=== PATIENT | female | born 1955 | race Caucasian/White ===

== ENCOUNTER 2018-05-10 19:25 | Inpatient (IN) | payer OTHER ==
[~2018-05-10] VITALS: Ht 152.4 cm; Wt 144.0 kg
[2018-05-10] MEDS ORDERED: MORPHINE SULFATE 4 MG/ML, 1ML IVPush PRN (20:30)
[2018-05-10] MEDS ORDERED: SODIUM CHLORIDE FLUSH 10ML SYR IVF PRN ×2 (20:30→21:00)
[2018-05-10] MEDS ORDERED: ONDANSETRON 2MG/ML, 2ML IVPush PRN ×2 (20:30→23:30)
[2018-05-10] MEDS ORDERED: ONDANSETRON 2MG/ML, 2ML ONE (20:31)
[2018-05-10] MEDS ORDERED: METHOCARBAMOL 750 MG TABLET ONE (20:31)
[2018-05-10] MEDS ORDERED: MORPHINE SULFATE 4 MG/ML, 1ML ONE (20:32)
--- NOTE | 2018-05-10 20:54 | NUR ---
PT BEDSIDE REPORT FROM RAJIV MARTINS. THIS RN TO ASSUME CARE OF PT. PT EATING MEAL AT THIS TIME. AWAITING ADMIT BED.
[2018-05-10] MEDS ORDERED: METHOCARBAMOL 750 MG TABLET PO SCH (21:00)
--- NOTE | 2018-05-10 21:59 | NUR ---
PT RESTING COMFORTABLY ON GURNEY. NADN. VSS. CALL LIGHT WITHIN REACH. AWAITING ADMIT BED UPSTAIRS.
--- NOTE | 2018-05-10 22:48 | NUR ---
PT RESTING COMFORTABLY ON GURNEY. NADN. VSS. CALL LIGHT WITHIN REACH. AWAITING ADMIT BED UPSTAIRS.
[2018-05-10 23:05] VITALS: BP 137/69
[2018-05-10] MEDS ORDERED: PROMETHAZINE 25 MG/ML, 1ML IM PRN (23:30)
[2018-05-10] MEDS ORDERED: KETOROLAC 30 MG/1 ML IV PRN (23:30)
[2018-05-10] MEDS ORDERED: CEFTRIAXONE PMX 2GM/50ML 50 ML IV SCH (23:30)
[2018-05-10] MEDS ORDERED: BISACODYL 10 MG SUPP PR PRN (23:30)
[2018-05-10] MEDS ORDERED: morphine SULFATE 10 MG/ML, 1ML IVPush PRN (23:30)
[2018-05-10] MEDS ORDERED: hydrALAzine 20 MG/ML, 1ML IVPush PRN (23:30)
[2018-05-10] MEDS ORDERED: LABETALOL 5MG/ML, 20ML IVPush PRN (23:30)
[2018-05-10] MEDS ORDERED: ONDANSETRON ODT 4 MG PO PRN (23:30)
[2018-05-11] MEDS: HEPARIN 5,000 UNITS/ML, 1ML SQ SCH ×4 (00:26→22:07)
[2018-05-11] MEDS: SODIUM CHLORIDE 0.9% 1,000 ML IV SCH ×3 (00:27→22:08)
[2018-05-11 00:31] LABS: FREE T4 (FREE THYROXINE) 1.16 ng/dL (0.76-1.46); THYROID STIMULATING HORMONE 0.294 mIU/L (0.358-3.740)
[2018-05-11 00:58] LABS: HEMOGLOBIN A1C 6.6 % (4.2-6.3)
[2018-05-11 02:52] LABS: CULTURE INDICATED? YES; MICROSCOPIC INDICATED
[2018-05-11 03:40] VITALS: BP 106/75
[2018-05-11] MEDS: OXYcodone/APAP 5/325MG TABLET PO PRN ×4 (05:23→22:07)
[2018-05-11 05:54] LABS: BASOPHILS % (AUTO) 0 % (0-1); EOSINOPHILS % (AUTO) 0 % (1-7); LYMPHOCYTES # (AUTO) 1.16 x10^3/uL (1-3.4); LYMPHOCYTES % (AUTO) 8 % (22-44); MD NO; MEAN CORPUSCULAR HEMOGLOBIN 29.9 pg (27.0-34.8); MEAN CORPUSCULAR HGB CONC 33.3 g/dL (32.4-35.8); MEAN CORPUSCULAR VOLUME 89.6 fL (80-100); MEAN PLATELET VOLUME 7.3 fL (7.4-10.4); MONOCYTES # (AUTO) 0.64 x10^3/uL (0.2-0.8); MONOCYTES % (AUTO) 4 % (2-9); NEUTROPHILS # (AUTO) 13.72 x10^3/uL (1.8-6.8); NEUTROPHILS % (AUTO) 88 % (42-75); PLATELET COUNT 337 x10^3/uL (130-400); RED BLOOD COUNT 3.48 x10^6/uL (3.82-5.3); RED CELL DISTRIBUTION WIDTH 14.9 % (9.6-15.2)
[2018-05-11 06:03] LABS: ALBUMIN 2.4 g/dL (3.4-5.0); ANION GAP 11 mmol/L (5-15); CALCIUM 9.1 mg/dL (8.5-10.1); CHLORIDE 101 mmol/L (98-107)
[2018-05-11 06:07] LABS: ALANINE AMINOTRANSFERASE 61 U/L (12-78); ALKALINE PHOSPHATASE 166 U/L (45-117); BILIRUBIN,TOTAL 0.3 mg/dL (0.2-1.0); CHOL/HDL RATIO 2.9; CHOLESTEROL, TOTAL 140 mg/dL (140-239); HDL CHOL % 35 % (28-40); HDL CHOLESTEROL (DIRECT) 49 mg/dL (40-60); LDL CHOLESTEROL,CALCULATED 37 mg/dL (54-169); LDL/HDL RATIO 0.8 (0.5-3.0); TOTAL PROTEIN 7.4 g/dL (6.4-8.2); TRIGLYCERIDES 268 mg/dL (50-200); VLDL CHOLESTEROL 54 mg/dL (0-25)
[2018-05-11 07:46] VITALS: BP 105/65
[2018-05-11] MEDS: INSULIN LISPRO 100 UNITS/ML, PEN SQ-INSULIN SCH ×4 (08:26→22:08)
[2018-05-11] MEDS: SENNA/DOCUSATE TABLET PO SCH (08:26)
[2018-05-11 12:41] VITALS: BP 113/63
[2018-05-11] MEDS: METHOCARBAMOL 500 MG TABLET PO PRN ×2 (12:50→22:07)
[2018-05-11] MEDS ORDERED: PHARMACOKINETIC MONITORING MC PRN (14:00)
[2018-05-11] MEDS ORDERED: VANCOMYCIN PER PHARMACY MC PRN (14:00)
[2018-05-11] MEDS ORDERED: VANCOMYCIN 2,300 MG in SODIUM CHLORIDE 0.9% 500 ML IV ONE (14:30)
[2018-05-11 15:58] LABS: HCT (SEDRATE) 27.7 % (34.6-47.8)
[2018-05-11 19:37] VITALS: BP 92/53
[2018-05-12 02:22] VITALS: BP 93/56
[2018-05-12] MEDS: OXYcodone/APAP 5/325MG TABLET PO PRN ×4 (02:44→21:06)
[2018-05-12 05:43] LABS: BASOPHILS # (AUTO) 0.06 x10^3/uL (0-0.1); BASOPHILS % (AUTO) 1 % (0-1); EOSINOPHILS # (AUTO) 0.13 x10^3/uL (0-0.4); EOSINOPHILS % (AUTO) 1 % (1-7); LYMPHOCYTES % (AUTO) 16 % (22-44); MD NO; MEAN CORPUSCULAR HEMOGLOBIN 30.3 pg (27.0-34.8); MEAN CORPUSCULAR HGB CONC 33.2 g/dL (32.4-35.8); MEAN CORPUSCULAR VOLUME 91.2 fL (80-100); MEAN PLATELET VOLUME 7.2 fL (7.4-10.4); MONOCYTES # (AUTO) 1.07 x10^3/uL (0.2-0.8); MONOCYTES % (AUTO) 8 % (2-9); NEUTROPHILS % (AUTO) 75 % (42-75); PLATELET COUNT 289 x10^3/uL (130-400); RED BLOOD COUNT 3.33 x10^6/uL (3.82-5.3); RED CELL DISTRIBUTION WIDTH 15.7 % (9.6-15.2)
[2018-05-12 05:58] LABS: ANION GAP 11 mmol/L (5-15); CALCIUM 8.4 mg/dL (8.5-10.1); CHLORIDE 103 mmol/L (98-107)
[2018-05-12 06:02] LABS: CREATININE 2.27 mg/dL (0.55-1.02)
[2018-05-12 06:33] LABS: VANCOMYCIN,RANDOM < 0.8 mcg/mL
[2018-05-12] MEDS: HEPARIN 5,000 UNITS/ML, 1ML SQ SCH ×3 (07:30→23:27)
[2018-05-12 07:44] VITALS: BP 109/65
[2018-05-12] MEDS: INSULIN LISPRO 100 UNITS/ML, PEN SQ-INSULIN SCH ×4 (07:57→21:05)
[2018-05-12] MEDS: METHOCARBAMOL 500 MG TABLET PO PRN ×2 (07:57→15:20)
[2018-05-12] MEDS: SENNA/DOCUSATE TABLET PO SCH (07:58)
[2018-05-12] MEDS ORDERED: FLUO20CA19 PO (08:24)
[2018-05-12] MEDS ORDERED: FENO150C2 PO (08:24)
[2018-05-12] MEDS ORDERED: CYCL-259 PO ×2 (08:24)
[2018-05-12] MEDS ORDERED: TIZA2CAP PO (08:24)
[2018-05-12] MEDS ORDERED: LISI10TA2 PO (08:25)
[2018-05-12] MEDS ORDERED: FURO40TA6 PO (08:25)
[2018-05-12] MEDS ORDERED: SIMV20TA3 PO (08:25)
[2018-05-12] MEDS ORDERED: LIDOCAINE-MPF 1%, 5ML ONE (10:28)
[2018-05-12] MEDS ORDERED: MIDAZOLAM 1 MG/ML, 5ML ONE ×2 (10:46→10:47)
[2018-05-12] MEDS ORDERED: FENTANYL PF 100 MCG/2ML ONE ×2 (10:46)
[2018-05-12] MEDS ORDERED: FLUMAZENIL 0.1 MG/1 ML, 5ML ONE (10:47)
[2018-05-12] MEDS ORDERED: NALOXONE 1 MG/ML, 2ML ONE (10:47)
[2018-05-12 13:22] VITALS: BP 114/74
[2018-05-12 19:40] VITALS: BP 84/46
[2018-05-12] MEDS: LISINOPRIL 10 MG TABLET PO SCH (21:00)
[2018-05-12] MEDS: FLUOXETINE HCL 20 MG CAPSULE PO SCH (21:06)
[2018-05-12] MEDS: SIMVASTATIN 20 MG TABLET PO SCH (21:06)
[2018-05-12] MEDS: CYCLOBENZAPRINE 10 MG TABLET PO PRN (21:06)
[2018-05-12 23:33] VITALS: BP 121/76
[2018-05-13] VITALS (8 sets, daily range): BP systolic 97–140; BP diastolic 47–76
[2018-05-13] MEDS: METHOCARBAMOL 500 MG TABLET PO PRN ×3 (02:49→20:44)
[2018-05-13] MEDS: OXYcodone/APAP 5/325MG TABLET PO PRN ×3 (02:49→20:45)
[2018-05-13 05:13] LABS: ALBUMIN 2.1 g/dL (3.4-5.0); ANION GAP 6 mmol/L (5-15); CALCIUM 8.8 mg/dL (8.5-10.1); CHLORIDE 104 mmol/L (98-107)
[2018-05-13 05:17] LABS: ALANINE AMINOTRANSFERASE 52 U/L (12-78); ALKALINE PHOSPHATASE 132 U/L (45-117); BILIRUBIN,TOTAL 0.4 mg/dL (0.2-1.0); CREATININE 1.73 mg/dL (0.55-1.02); TOTAL PROTEIN 6.5 g/dL (6.4-8.2)
[2018-05-13 05:25] LABS: BASOPHILS # (AUTO) 0.08 x10^3/uL (0-0.1); BASOPHILS % (AUTO) 1 % (0-1); EOSINOPHILS # (AUTO) 0.19 x10^3/uL (0-0.4); EOSINOPHILS % (AUTO) 2 % (1-7); LYMPHOCYTES % (AUTO) 14 % (22-44); MD NO; MEAN CORPUSCULAR HEMOGLOBIN 30.1 pg (27.0-34.8); MEAN CORPUSCULAR HGB CONC 33.5 g/dL (32.4-35.8); MEAN PLATELET VOLUME 6.9 fL (7.4-10.4); MONOCYTES # (AUTO) 0.94 x10^3/uL (0.2-0.8); MONOCYTES % (AUTO) 9 % (2-9); NEUTROPHILS # (AUTO) 7.83 x10^3/uL (1.8-6.8); NEUTROPHILS % (AUTO) 74 % (42-75); PLATELET COUNT 290 x10^3/uL (130-400); RED CELL DISTRIBUTION WIDTH 15.3 % (9.6-15.2)
[2018-05-13] MEDS: HEPARIN 5,000 UNITS/ML, 1ML SQ SCH ×2 (07:56→15:30)
[2018-05-13] MEDS: INSULIN LISPRO 100 UNITS/ML, PEN SQ-INSULIN SCH ×4 (07:56→20:45)
[2018-05-13] MEDS: FUROSEMIDE 40 MG TABLET PO SCH (07:56)
[2018-05-13] MEDS: FENOFIBRATE 145 MG TABLET PO SCH (07:57)
[2018-05-13] MEDS: SENNA/DOCUSATE TABLET PO SCH (07:57)
--- NOTE | 2018-05-13 10:53 | NUR ---
DEX KAUFMAN - Fall Risk Medication(s) present and receiving anticoagulants.
[2018-05-13] MEDS: MEROPENEM 1 GM in SODIUM CHLORIDE 0.9% 100 ML IV SCH (15:13)
[2018-05-13] MEDS ORDERED: CEFTRIAXONE PMX 2GM/50ML 50 ML IV SCH (16:00)
[2018-05-13] MEDS: SIMVASTATIN 20 MG TABLET PO SCH (20:44)
[2018-05-13] MEDS: FLUOXETINE HCL 20 MG CAPSULE PO SCH (20:44)
[2018-05-13] MEDS: LISINOPRIL 10 MG TABLET PO SCH (20:45)
[2018-05-14] MEDS: HEPARIN 5,000 UNITS/ML, 1ML SQ SCH ×3 (00:11→16:53)
[2018-05-14 00:48] VITALS: BP 130/80
[2018-05-14] MEDS: MEROPENEM 1 GM in SODIUM CHLORIDE 0.9% 100 ML IV SCH (03:00)
[2018-05-14] MEDS: CYCLOBENZAPRINE 10 MG TABLET PO PRN ×2 (03:21→13:52)
[2018-05-14] MEDS: OXYcodone/APAP 5/325MG TABLET PO PRN ×4 (03:21→18:35)
[2018-05-14 07:14] VITALS: BP 138/79
[2018-05-14] MEDS: FENOFIBRATE 145 MG TABLET PO SCH (08:08)
[2018-05-14] MEDS: INSULIN LISPRO 100 UNITS/ML, PEN SQ-INSULIN SCH ×4 (08:08→21:14)
[2018-05-14] MEDS: METHOCARBAMOL 500 MG TABLET PO PRN (08:08)
[2018-05-14] MEDS: FUROSEMIDE 40 MG TABLET PO SCH (08:08)
[2018-05-14] MEDS: SENNA/DOCUSATE TABLET PO SCH (09:00)
[2018-05-14 13:02] VITALS: BP 127/80
[2018-05-14] MEDS ORDERED: CEFTRIAXONE PMX 2GM/50ML 50 ML IV SCH (15:00)
[2018-05-14] MEDS: SIMVASTATIN 20 MG TABLET PO SCH (20:14)
[2018-05-14] MEDS: FLUOXETINE HCL 20 MG CAPSULE PO SCH (20:14)
[2018-05-14] MEDS: LISINOPRIL 10 MG TABLET PO SCH (20:14)
[2018-05-14 21:15] VITALS: BP 119/64
[2018-05-15 02:06] VITALS: BP 118/70
[2018-05-15] MEDS: OXYcodone/APAP 5/325MG TABLET PO PRN ×3 (02:32→18:25)
[2018-05-15] MEDS: HEPARIN 5,000 UNITS/ML, 1ML SQ SCH ×4 (02:33→20:51)
[2018-05-15 06:05] LABS: HCT (SEDRATE) 29.6 % (34.6-47.8)
[2018-05-15 06:08] LABS: MEAN CORPUSCULAR HGB CONC 33.8 g/dL (32.4-35.8); MEAN CORPUSCULAR VOLUME 88.8 fL (80-100); MEAN PLATELET VOLUME 6.9 fL (7.4-10.4); PLATELET COUNT 327 x10^3/uL (130-400); RED CELL DISTRIBUTION WIDTH 15.3 % (9.6-15.2)
[2018-05-15 06:19] LABS: CHLORIDE 101 mmol/L (98-107)
[2018-05-15 06:34] LABS: BASOPHILS # (AUTO) 0.13 x10^3/uL (0-0.1); BASOPHILS % (AUTO) 1 % (0-1); EOSINOPHILS # (AUTO) 0.21 x10^3/uL (0-0.4); EOSINOPHILS % (AUTO) 1 % (1-7); LYMPHOCYTES # (AUTO) 2.41 x10^3/uL (1-3.4); LYMPHOCYTES % (AUTO) 16 % (22-44); MD SCAN; MONOCYTES # (AUTO) 1.32 x10^3/uL (0.2-0.8); MONOCYTES % (AUTO) 9 % (2-9); NEUTROPHILS % (AUTO) 72 % (42-75)
[2018-05-15 06:56] LABS: ALBUMIN 2.3 g/dL (3.4-5.0); ANION GAP 9 mmol/L (5-15); CALCIUM 9.4 mg/dL (8.5-10.1)
[2018-05-15 07:10] LABS: ALANINE AMINOTRANSFERASE 57 U/L (12-78); ALKALINE PHOSPHATASE 144 U/L (45-117); BILIRUBIN,TOTAL 0.3 mg/dL (0.2-1.0); CREATININE 1.54 mg/dL (0.55-1.02); TOTAL PROTEIN 6.7 g/dL (6.4-8.2)
[2018-05-15 07:12] VITALS: BP 138/78
[2018-05-15] MEDS: FENOFIBRATE 145 MG TABLET PO SCH (07:54)
[2018-05-15] MEDS: METHOCARBAMOL 500 MG TABLET PO PRN (07:54)
[2018-05-15] MEDS: INSULIN LISPRO 100 UNITS/ML, PEN SQ-INSULIN SCH ×4 (07:54→20:57)
[2018-05-15] MEDS: FUROSEMIDE 40 MG TABLET PO SCH (07:55)
[2018-05-15] MEDS: SENNA/DOCUSATE TABLET PO SCH (07:55)
[2018-05-15 12:21] VITALS: BP 125/74
[2018-05-15] MEDS: CYCLOBENZAPRINE 10 MG TABLET PO PRN (14:12)
[2018-05-15] MEDS: CEFTRIAXONE PMX 2GM/50ML 50 ML IV SCH (14:33)
[2018-05-15 19:26] VITALS: BP 119/75
[2018-05-15] MEDS: FLUOXETINE HCL 20 MG CAPSULE PO SCH (20:50)
[2018-05-15] MEDS: LISINOPRIL 10 MG TABLET PO SCH (20:50)
[2018-05-15] MEDS: SIMVASTATIN 20 MG TABLET PO SCH (20:51)
[2018-05-16 01:42] VITALS: BP 120/69
[2018-05-16 06:16] LABS: BASOPHILS # (AUTO) 0.11 x10^3/uL (0-0.1); BASOPHILS % (AUTO) 1 % (0-1); EOSINOPHILS # (AUTO) 0.36 x10^3/uL (0-0.4); EOSINOPHILS % (AUTO) 2 % (1-7); LYMPHOCYTES # (AUTO) 2.48 x10^3/uL (1-3.4); LYMPHOCYTES % (AUTO) 16 % (22-44); MD NO; MEAN CORPUSCULAR HEMOGLOBIN 29.7 pg (27.0-34.8); MEAN CORPUSCULAR HGB CONC 33.2 g/dL (32.4-35.8); MEAN CORPUSCULAR VOLUME 89.5 fL (80-100); MEAN PLATELET VOLUME 7.1 fL (7.4-10.4); MONOCYTES % (AUTO) 8 % (2-9); NEUTROPHILS # (AUTO) 10.93 x10^3/uL (1.8-6.8); NEUTROPHILS % (AUTO) 73 % (42-75); PLATELET COUNT 357 x10^3/uL (130-400); RED BLOOD COUNT 3.51 x10^6/uL (3.82-5.3); RED CELL DISTRIBUTION WIDTH 15.1 % (9.6-15.2)
[2018-05-16] MEDS: OXYcodone/APAP 5/325MG TABLET PO PRN ×3 (06:31→16:10)
[2018-05-16 07:18] VITALS: BP 118/71
[2018-05-16] MEDS: INSULIN LISPRO 100 UNITS/ML, PEN SQ-INSULIN SCH ×4 (08:21→20:05)
[2018-05-16] MEDS: FUROSEMIDE 40 MG TABLET PO SCH (08:21)
[2018-05-16] MEDS: FENOFIBRATE 145 MG TABLET PO SCH (08:22)
[2018-05-16] MEDS: POLYETHYLENE GLYCOL 17 GM PACKET PO PRN (08:22)
[2018-05-16] MEDS: SENNA/DOCUSATE TABLET PO SCH (08:22)
[2018-05-16] MEDS: HEPARIN 5,000 UNITS/ML, 1ML SQ SCH ×2 (08:22→17:18)
[2018-05-16] MEDS: METHOCARBAMOL 500 MG TABLET PO PRN ×2 (11:01→19:58)
[2018-05-16 12:53] VITALS: BP 100/66
[2018-05-16] MEDS: CYCLOBENZAPRINE 10 MG TABLET PO PRN ×2 (12:53→22:18)
[2018-05-16] MEDS: CEFTRIAXONE PMX 2GM/50ML 50 ML IV SCH (12:53)
[2018-05-16 19:30] VITALS: BP 97/63
[2018-05-16 19:54] VITALS: BP 127/75
[2018-05-16] MEDS: LISINOPRIL 10 MG TABLET PO SCH (19:57)
[2018-05-16] MEDS: SIMVASTATIN 20 MG TABLET PO SCH (19:58)
[2018-05-16] MEDS: FLUOXETINE HCL 20 MG CAPSULE PO SCH (19:58)
[2018-05-17] VITALS (7 sets, daily range): BP systolic 87–120; BP diastolic 54–73
[2018-05-17] MEDS: OXYcodone/APAP 5/325MG TABLET PO PRN ×3 (00:09→16:54)
[2018-05-17] MEDS: HEPARIN 5,000 UNITS/ML, 1ML SQ SCH ×3 (00:09→16:54)
[2018-05-17] MEDS ORDERED: SODIUM CHLORIDE 0.9%, 500ML IVBOLUS ONE (02:00)
[2018-05-17 02:48] LABS: BASOPHILS # (AUTO) 0.09 x10^3/uL (0-0.1); BASOPHILS % (AUTO) 1 % (0-1); EOSINOPHILS % (AUTO) 3 % (1-7); LYMPHOCYTES # (AUTO) 2.11 x10^3/uL (1-3.4); LYMPHOCYTES % (AUTO) 14 % (22-44); MD NO; MEAN CORPUSCULAR HEMOGLOBIN 29.6 pg (27.0-34.8); MEAN CORPUSCULAR HGB CONC 33.2 g/dL (32.4-35.8); MEAN CORPUSCULAR VOLUME 89.2 fL (80-100); MEAN PLATELET VOLUME 7.2 fL (7.4-10.4); MONOCYTES # (AUTO) 0.74 x10^3/uL (0.2-0.8); MONOCYTES % (AUTO) 5 % (2-9); NEUTROPHILS # (AUTO) 11.46 x10^3/uL (1.8-6.8); NEUTROPHILS % (AUTO) 78 % (42-75); PLATELET COUNT 373 x10^3/uL (130-400); RED BLOOD COUNT 3.29 x10^6/uL (3.82-5.3); RED CELL DISTRIBUTION WIDTH 15.1 % (9.6-15.2)
[2018-05-17 02:55] LABS: ALANINE AMINOTRANSFERASE 56 U/L (12-78); ALBUMIN 2.4 g/dL (3.4-5.0); ANION GAP 8 mmol/L (5-15); CHLORIDE 98 mmol/L (98-107); CREATININE 1.79 mg/dL (0.55-1.02)
[2018-05-17 02:57] LABS: ALKALINE PHOSPHATASE 122 U/L (45-117); BILIRUBIN,TOTAL 0.3 mg/dL (0.2-1.0); TOTAL PROTEIN 6.5 g/dL (6.4-8.2)
[2018-05-17] MEDS: METHOCARBAMOL 500 MG TABLET PO PRN ×2 (05:13→19:56)
[2018-05-17] MEDS: FENOFIBRATE 145 MG TABLET PO SCH (08:43)
[2018-05-17] MEDS: FUROSEMIDE 40 MG TABLET PO SCH (08:43)
[2018-05-17] MEDS: CYCLOBENZAPRINE 10 MG TABLET PO PRN ×2 (08:43→22:16)
[2018-05-17] MEDS: SENNA/DOCUSATE TABLET PO SCH (08:43)
[2018-05-17] MEDS: INSULIN LISPRO 100 UNITS/ML, PEN SQ-INSULIN SCH ×4 (08:44→20:10)
[2018-05-17] MEDS: CEFTRIAXONE PMX 2GM/50ML 50 ML IV SCH (11:47)
[2018-05-17] MEDS: LISINOPRIL 10 MG TABLET PO SCH (19:55)
[2018-05-17] MEDS: FLUOXETINE HCL 20 MG CAPSULE PO SCH (19:55)
[2018-05-17] MEDS: SIMVASTATIN 20 MG TABLET PO SCH (19:56)
[2018-05-18] MEDS: HEPARIN 5,000 UNITS/ML, 1ML SQ SCH ×3 (00:37→17:57)
[2018-05-18] MEDS: OXYcodone/APAP 5/325MG TABLET PO PRN ×2 (00:37→15:56)
[2018-05-18 00:43] VITALS: BP 120/72
[2018-05-18 07:24] VITALS: BP 149/75
[2018-05-18] MEDS: INSULIN LISPRO 100 UNITS/ML, PEN SQ-INSULIN SCH ×4 (08:00→20:33)
[2018-05-18] MEDS: METHOCARBAMOL 500 MG TABLET PO PRN ×2 (08:01→16:08)
[2018-05-18] MEDS: FENOFIBRATE 145 MG TABLET PO SCH (09:38)
[2018-05-18] MEDS: SENNA/DOCUSATE TABLET PO SCH (09:39)
[2018-05-18] MEDS: FUROSEMIDE 40 MG TABLET PO SCH (09:40)
[2018-05-18] MEDS: CYCLOBENZAPRINE 10 MG TABLET PO PRN ×2 (12:00→20:24)
[2018-05-18] MEDS: CEFTRIAXONE PMX 2GM/50ML 50 ML IV SCH (12:52)
[2018-05-18 13:53] VITALS: BP 143/79
[2018-05-18 19:59] VITALS: BP 132/64
[2018-05-18 20:23] VITALS: BP 140/74
[2018-05-18] MEDS: LISINOPRIL 10 MG TABLET PO SCH (20:24)
[2018-05-18] MEDS: FLUOXETINE HCL 20 MG CAPSULE PO SCH (20:24)
[2018-05-18] MEDS: SIMVASTATIN 20 MG TABLET PO SCH (20:25)
[2018-05-19] MEDS: HEPARIN 5,000 UNITS/ML, 1ML SQ SCH ×3 (00:31→20:02)
[2018-05-19 00:59] VITALS: BP 144/79
[2018-05-19] MEDS: OXYcodone/APAP 5/325MG TABLET PO PRN ×3 (02:12→20:33)
[2018-05-19] MEDS: METHOCARBAMOL 500 MG TABLET PO PRN ×3 (02:12→15:38)
[2018-05-19 02:41] LABS: BASOPHILS # (AUTO) 0.07 x10^3/uL (0-0.1); BASOPHILS % (AUTO) 0 % (0-1); EOSINOPHILS # (AUTO) 0.35 x10^3/uL (0-0.4); EOSINOPHILS % (AUTO) 2 % (1-7); LYMPHOCYTES # (AUTO) 2.39 x10^3/uL (1-3.4); LYMPHOCYTES % (AUTO) 14 % (22-44); MD NO; MEAN CORPUSCULAR HEMOGLOBIN 30.1 pg (27.0-34.8); MEAN CORPUSCULAR HGB CONC 34.2 g/dL (32.4-35.8); MEAN CORPUSCULAR VOLUME 88.3 fL (80-100); MEAN PLATELET VOLUME 7.4 fL (7.4-10.4); MONOCYTES # (AUTO) 1.17 x10^3/uL (0.2-0.8); MONOCYTES % (AUTO) 7 % (2-9); NEUTROPHILS # (AUTO) 13.18 x10^3/uL (1.8-6.8); NEUTROPHILS % (AUTO) 77 % (42-75); PLATELET COUNT 409 x10^3/uL (130-400); RED BLOOD COUNT 3.41 x10^6/uL (3.82-5.3); RED CELL DISTRIBUTION WIDTH 14.6 % (9.6-15.2)
[2018-05-19 02:52] LABS: ANION GAP 9 mmol/L (5-15); CALCIUM 9.4 mg/dL (8.5-10.1); CHLORIDE 97 mmol/L (98-107); CREATININE 1.78 mg/dL (0.55-1.02)
[2018-05-19] MEDS: INSULIN LISPRO 100 UNITS/ML, PEN SQ-INSULIN SCH ×4 (07:48→20:32)
[2018-05-19] MEDS ORDERED: morphine SULFATE 10 MG/ML, 1ML IVPush PRN (08:00)
[2018-05-19 08:43] VITALS: BP 140/76
[2018-05-19] MEDS: CYCLOBENZAPRINE 10 MG TABLET PO PRN ×2 (10:25→20:33)
[2018-05-19 11:12] LABS: HCT (SEDRATE) 29.6 % (34.6-47.8)
[2018-05-19] MEDS: FENOFIBRATE 145 MG TABLET PO SCH (11:17)
[2018-05-19] MEDS: SENNA/DOCUSATE TABLET PO SCH (11:17)
[2018-05-19] MEDS: FUROSEMIDE 40 MG TABLET PO SCH (11:18)
[2018-05-19] MEDS: CEFTRIAXONE PMX 2GM/50ML 50 ML IV SCH (11:53)
[2018-05-19 14:48] VITALS: BP 135/72
[2018-05-19 14:49] VITALS: BP 138/76
[2018-05-19] MEDS: FLUOXETINE HCL 20 MG CAPSULE PO SCH (20:03)
[2018-05-19] MEDS: SIMVASTATIN 20 MG TABLET PO SCH (20:04)
[2018-05-19 20:23] VITALS: BP 106/64
[2018-05-19] MEDS: LISINOPRIL 10 MG TABLET PO SCH (20:33)
[2018-05-20 01:48] VITALS: BP 115/64
[2018-05-20] MEDS: OXYcodone/APAP 5/325MG TABLET PO PRN ×4 (02:25→22:38)
[2018-05-20] MEDS: METHOCARBAMOL 500 MG TABLET PO PRN ×3 (02:25→22:38)
[2018-05-20] MEDS: HEPARIN 5,000 UNITS/ML, 1ML SQ SCH ×3 (04:31→19:37)
[2018-05-20 07:24] VITALS: BP 118/69
[2018-05-20 08:28] LABS: MEAN CORPUSCULAR HEMOGLOBIN 29.4 pg (27.0-34.8); MEAN CORPUSCULAR HGB CONC 33.2 g/dL (32.4-35.8); MEAN CORPUSCULAR VOLUME 88.6 fL (80-100); MEAN PLATELET VOLUME 7.3 fL (7.4-10.4); PLATELET COUNT 378 x10^3/uL (130-400); RED BLOOD COUNT 3.52 x10^6/uL (3.82-5.3); RED CELL DISTRIBUTION WIDTH 14.9 % (9.6-15.2)
[2018-05-20] MEDS: INSULIN LISPRO 100 UNITS/ML, PEN SQ-INSULIN SCH ×4 (08:31→20:10)
[2018-05-20] MEDS: FENOFIBRATE 145 MG TABLET PO SCH (08:32)
[2018-05-20] MEDS: INSULIN GLARGINE 100 UNITS/ML, PEN SQ-INSULIN SCH (08:32)
[2018-05-20] MEDS: FUROSEMIDE 40 MG TABLET PO SCH (08:32)
[2018-05-20] MEDS: SENNA/DOCUSATE TABLET PO SCH (08:32)
[2018-05-20 09:05] LABS: MD YES
[2018-05-20 09:07] LABS: BAND#(MANUAL) 0.74 x10^3/uL; BANDS%(MANUAL) 5 % (0-7); LYMPH#(MANUAL) 2.52 x10^3/uL (1-3.4); LYMPHS% (MANUAL) 17 % (22-44); METAMYELOCYTES# (MANUAL) 0.15 x10^3/uL (0-0); METAMYELOCYTES% (MANUAL) 1 % (0-1); MONOS#(MANUAL) 0.59 x10^3/uL (0.3-2.7); MONOS% (MANUAL) 4 % (2-9); MYELOCYTES# (MANUAL) 0.15 x10^3/uL (0-0); MYELOCYTES% (MANUAL) 1 % (0-0); SEG#(MANUAL) 10.66 x10^3/uL (1.8-6.8); SEGS% (MANUAL) 72 % (42-75)
[2018-05-20 09:08] LABS: <PLATELET ESTIMATE> ADEQUATE; <PLT MORPHOLOGY> NORMAL PLT MORPH; <RBC MORPHOLOGY> NORMAL
[2018-05-20] MEDS: CYCLOBENZAPRINE 10 MG TABLET PO PRN ×2 (10:14→19:37)
[2018-05-20 10:16] LABS: ANION GAP 8 mmol/L (5-15); CALCIUM 9.6 mg/dL (8.5-10.1); CHLORIDE 98 mmol/L (98-107); CREATININE 1.81 mg/dL (0.55-1.02)
[2018-05-20] MEDS: CEFTRIAXONE PMX 2GM/50ML 50 ML IV SCH (12:41)
[2018-05-20 14:18] VITALS: BP 122/73
[2018-05-20 19:29] VITALS: BP 92/59
[2018-05-20] MEDS: SIMVASTATIN 20 MG TABLET PO SCH (19:36)
[2018-05-20] MEDS: FLUOXETINE HCL 20 MG CAPSULE PO SCH (19:37)
[2018-05-20] MEDS: LISINOPRIL 10 MG TABLET PO SCH (21:00)
[2018-05-20 22:35] VITALS: BP 106/65
[2018-05-21 02:00] VITALS: BP 108/63
[2018-05-21] MEDS: CYCLOBENZAPRINE 10 MG TABLET PO PRN ×2 (02:45→20:26)
[2018-05-21] MEDS: OXYcodone/APAP 5/325MG TABLET PO PRN ×3 (04:21→20:24)
[2018-05-21] MEDS: HEPARIN 5,000 UNITS/ML, 1ML SQ SCH ×3 (04:21→20:24)
[2018-05-21 07:29] VITALS: BP 115/69
[2018-05-21] MEDS: FENOFIBRATE 145 MG TABLET PO SCH (08:14)
[2018-05-21] MEDS: INSULIN GLARGINE 100 UNITS/ML, PEN SQ-INSULIN SCH (08:14)
[2018-05-21] MEDS: FUROSEMIDE 40 MG TABLET PO SCH (08:14)
[2018-05-21] MEDS: INSULIN LISPRO 100 UNITS/ML, PEN SQ-INSULIN SCH ×4 (08:15→20:30)
[2018-05-21] MEDS: METHOCARBAMOL 500 MG TABLET PO PRN ×2 (08:17→17:15)
[2018-05-21] MEDS: SENNA/DOCUSATE TABLET PO SCH (08:17)
[2018-05-21] MEDS: GABAPENTIN 300 MG CAPSULE PO SCH ×2 (12:45→20:24)
[2018-05-21] MEDS: CEFTRIAXONE PMX 2GM/50ML 50 ML IV SCH (12:45)
[2018-05-21 13:53] VITALS: BP 98/58
[2018-05-21 18:28] VITALS: BP 107/71
[2018-05-21] MEDS: SIMVASTATIN 20 MG TABLET PO SCH (20:24)
[2018-05-21] MEDS: LISINOPRIL 10 MG TABLET PO SCH (20:25)
[2018-05-21] MEDS: FLUOXETINE HCL 20 MG CAPSULE PO SCH (20:26)
[2018-05-22 01:34] VITALS: BP 133/62
[2018-05-22] MEDS: METHOCARBAMOL 500 MG TABLET PO PRN ×3 (01:45→21:15)
[2018-05-22] MEDS: OXYcodone/APAP 5/325MG TABLET PO PRN ×3 (01:45→21:10)
[2018-05-22] MEDS: HEPARIN 5,000 UNITS/ML, 1ML SQ SCH ×3 (04:23→21:12)
[2018-05-22] MEDS: CYCLOBENZAPRINE 10 MG TABLET PO PRN ×3 (04:23→23:29)
[2018-05-22 05:21] LABS: MEAN CORPUSCULAR HEMOGLOBIN 30.5 pg (27.0-34.8); MEAN CORPUSCULAR HGB CONC 34.2 g/dL (32.4-35.8); MEAN CORPUSCULAR VOLUME 89.1 fL (80-100); PLATELET COUNT 364 x10^3/uL (130-400); RED BLOOD COUNT 3.03 x10^6/uL (3.82-5.3)
[2018-05-22 05:26] LABS: ALBUMIN 2.7 g/dL (3.4-5.0); ANION GAP 9 mmol/L (5-15); CALCIUM 9.4 mg/dL (8.5-10.1); CHLORIDE 98 mmol/L (98-107)
[2018-05-22 05:39] LABS: ALANINE AMINOTRANSFERASE 42 U/L (12-78); ALKALINE PHOSPHATASE 108 U/L (45-117); BILIRUBIN,TOTAL 0.4 mg/dL (0.2-1.0); CREATININE 2.08 mg/dL (0.55-1.02); TOTAL PROTEIN 6.8 g/dL (6.4-8.2)
[2018-05-22 06:02] LABS: BASOPHILS # (AUTO) 0.21 x10^3/uL (0-0.1); BASOPHILS % (AUTO) 1 % (0-1); EOSINOPHILS # (AUTO) 0.43 x10^3/uL (0-0.4); EOSINOPHILS % (AUTO) 3 % (1-7); LYMPHOCYTES % (AUTO) 13 % (22-44); MD SCAN; MONOCYTES # (AUTO) 1.17 x10^3/uL (0.2-0.8); MONOCYTES % (AUTO) 8 % (2-9); NEUTROPHILS # (AUTO) 11.57 x10^3/uL (1.8-6.8); NEUTROPHILS % (AUTO) 75 % (42-75)
[2018-05-22 07:47] VITALS: BP 90/52
[2018-05-22] MEDS: INSULIN LISPRO 100 UNITS/ML, PEN SQ-INSULIN SCH ×4 (08:06→21:32)
[2018-05-22] MEDS: FENOFIBRATE 145 MG TABLET PO SCH (08:52)
[2018-05-22] MEDS: GABAPENTIN 300 MG CAPSULE PO SCH ×2 (08:53→21:13)
[2018-05-22] MEDS: FUROSEMIDE 40 MG TABLET PO SCH (08:53)
[2018-05-22] MEDS: SENNA/DOCUSATE TABLET PO SCH (08:53)
[2018-05-22] MEDS: INSULIN GLARGINE 100 UNITS/ML, PEN SQ-INSULIN SCH (08:59)
[2018-05-22] MEDS: CEFTRIAXONE PMX 2GM/50ML 50 ML IV SCH (12:39)
[2018-05-22 13:10] VITALS: BP 103/62
[2018-05-22] MEDS: SODIUM CHLORIDE 0.9% 1,000 ML IV SCH (15:24)
[2018-05-22 18:38] VITALS: BP 106/60
[2018-05-22] MEDS: FLUOXETINE HCL 20 MG CAPSULE PO SCH (21:12)
[2018-05-22] MEDS: SIMVASTATIN 20 MG TABLET PO SCH (21:13)
[2018-05-22] MEDS: POLYETHYLENE GLYCOL 17 GM PACKET PO PRN (21:32)
[2018-05-22] MEDS: LISINOPRIL 10 MG TABLET PO SCH (21:33)
[2018-05-23] VITALS (9 sets, daily range): BP systolic 93–107; BP diastolic 54–66
[2018-05-23] MEDS: SODIUM CHLORIDE 0.9% 1,000 ML IV SCH ×4 (02:24→20:04)
[2018-05-23] MEDS: HEPARIN 5,000 UNITS/ML, 1ML SQ SCH ×3 (04:24→20:04)
[2018-05-23 05:04] LABS: ANION GAP 9 mmol/L (5-15); CALCIUM 8.9 mg/dL (8.5-10.1); CHLORIDE 95 mmol/L (98-107); CREATININE 3.06 mg/dL (0.55-1.02)
[2018-05-23] MEDS: METHOCARBAMOL 500 MG TABLET PO PRN ×2 (07:30→16:01)
[2018-05-23] MEDS: GABAPENTIN 300 MG CAPSULE PO SCH ×2 (07:30→20:27)
[2018-05-23] MEDS: FENOFIBRATE 145 MG TABLET PO SCH (07:30)
[2018-05-23] MEDS: SENNA/DOCUSATE TABLET PO SCH (07:30)
[2018-05-23] MEDS ORDERED: PHARMACY MAY ADJ FOR RENAL FX MC PRN (07:30)
[2018-05-23] MEDS: INSULIN GLARGINE 100 UNITS/ML, PEN SQ-INSULIN SCH (07:34)
[2018-05-23] MEDS: INSULIN LISPRO 100 UNITS/ML, PEN SQ-INSULIN SCH ×4 (07:35→20:28)
[2018-05-23] MEDS: OXYcodone/APAP 5/325MG TABLET PO PRN ×2 (10:50→23:29)
[2018-05-23] MEDS: CEFTRIAXONE PMX 2GM/50ML 50 ML IV SCH (12:54)
[2018-05-23] MEDS: FLUOXETINE HCL 20 MG CAPSULE PO SCH (20:27)
[2018-05-23] MEDS: SIMVASTATIN 20 MG TABLET PO SCH (20:27)
[2018-05-23] MEDS: CYCLOBENZAPRINE 10 MG TABLET PO PRN (23:29)
[2018-05-24 00:27] VITALS: BP 91/60
[2018-05-24] MEDS: HEPARIN 5,000 UNITS/ML, 1ML SQ SCH ×3 (04:20→20:27)
[2018-05-24] MEDS: METHOCARBAMOL 500 MG TABLET PO PRN ×3 (04:20→22:02)
[2018-05-24 05:17] LABS: HCT (SEDRATE) 26.8 % (34.6-47.8)
[2018-05-24 05:26] LABS: BASOPHILS % (AUTO) 1 % (0-1); EOSINOPHILS # (AUTO) 0.37 x10^3/uL (0-0.4); EOSINOPHILS % (AUTO) 3 % (1-7); LYMPHOCYTES # (AUTO) 1.92 x10^3/uL (1-3.4); LYMPHOCYTES % (AUTO) 17 % (22-44); MD NO; MEAN CORPUSCULAR HEMOGLOBIN 30.1 pg (27.0-34.8); MEAN CORPUSCULAR HGB CONC 33.6 g/dL (32.4-35.8); MEAN CORPUSCULAR VOLUME 89.8 fL (80-100); MEAN PLATELET VOLUME 8.4 fL (7.4-10.4); MONOCYTES % (AUTO) 9 % (2-9); NEUTROPHILS # (AUTO) 7.97 x10^3/uL (1.8-6.8); NEUTROPHILS % (AUTO) 70 % (42-75); PLATELET COUNT 342 x10^3/uL (130-400)
[2018-05-24 05:30] LABS: ANION GAP 9 mmol/L (5-15); CHLORIDE 102 mmol/L (98-107)
[2018-05-24 05:38] LABS: CREATININE 2.25 mg/dL (0.55-1.02)
[2018-05-24] MEDS: SODIUM CHLORIDE 0.9% 1,000 ML IV SCH ×2 (06:05→15:22)
[2018-05-24 06:39] VITALS: BP 104/57
[2018-05-24] MEDS: OXYcodone/APAP 5/325MG TABLET PO PRN ×2 (07:42→17:04)
[2018-05-24] MEDS: INSULIN LISPRO 100 UNITS/ML, PEN SQ-INSULIN SCH ×4 (07:42→20:28)
[2018-05-24] MEDS: GABAPENTIN 300 MG CAPSULE PO SCH ×2 (09:12→20:27)
[2018-05-24] MEDS: SENNA/DOCUSATE TABLET PO SCH (09:12)
[2018-05-24] MEDS: FENOFIBRATE 145 MG TABLET PO SCH (09:12)
[2018-05-24] MEDS: INSULIN GLARGINE 100 UNITS/ML, PEN SQ-INSULIN SCH (09:13)
[2018-05-24] MEDS: CEFTRIAXONE PMX 2GM/50ML 50 ML IV SCH (12:09)
[2018-05-24 12:54] VITALS: BP 108/78
[2018-05-24 13:54] LABS: ALANINE AMINOTRANSFERASE 34 U/L (12-78); ALBUMIN 2.6 g/dL (3.4-5.0); ANION GAP 8 mmol/L (5-15); CHLORIDE 103 mmol/L (98-107); CREATININE 2.11 mg/dL (0.55-1.02)
[2018-05-24 13:56] LABS: ALKALINE PHOSPHATASE 101 U/L (45-117); BILIRUBIN,TOTAL 0.3 mg/dL (0.2-1.0); TOTAL PROTEIN 6.5 g/dL (6.4-8.2)
[2018-05-24] MEDS: FLUOXETINE HCL 20 MG CAPSULE PO SCH (20:27)
[2018-05-24] MEDS: SIMVASTATIN 20 MG TABLET PO SCH (20:27)
[2018-05-24] MEDS: CYCLOBENZAPRINE 10 MG TABLET PO PRN (20:36)
[2018-05-24 21:17] VITALS: BP 95/57
[2018-05-25] MEDS: OXYcodone/APAP 5/325MG TABLET PO PRN ×3 (01:24→20:39)
[2018-05-25 01:36] VITALS: BP 108/65
[2018-05-25 01:43] VITALS: BP 149/75
[2018-05-25] MEDS: HEPARIN 5,000 UNITS/ML, 1ML SQ SCH ×3 (04:23→20:39)
[2018-05-25 04:47] LABS: BASOPHILS # (AUTO) 0.07 x10^3/uL (0-0.1); BASOPHILS % (AUTO) 1 % (0-1); EOSINOPHILS # (AUTO) 0.27 x10^3/uL (0-0.4); EOSINOPHILS % (AUTO) 3 % (1-7); LYMPHOCYTES # (AUTO) 1.89 x10^3/uL (1-3.4); LYMPHOCYTES % (AUTO) 17 % (22-44); MD NO; MEAN CORPUSCULAR HEMOGLOBIN 30.3 pg (27.0-34.8); MEAN CORPUSCULAR VOLUME 88.9 fL (80-100); MEAN PLATELET VOLUME 8.7 fL (7.4-10.4); MONOCYTES # (AUTO) 0.89 x10^3/uL (0.2-0.8); MONOCYTES % (AUTO) 8 % (2-9); NEUTROPHILS % (AUTO) 71 % (42-75); PLATELET COUNT 301 x10^3/uL (130-400); RED BLOOD COUNT 2.93 x10^6/uL (3.82-5.3); RED CELL DISTRIBUTION WIDTH 14.8 % (9.6-15.2)
[2018-05-25] MEDS: INSULIN LISPRO 100 UNITS/ML, PEN SQ-INSULIN SCH ×7 (07:48→20:39)
[2018-05-25 07:51] VITALS: BP 112/56
[2018-05-25 08:09] LABS: ANION GAP 6 mmol/L (5-15); CALCIUM 9.3 mg/dL (8.5-10.1); CHLORIDE 104 mmol/L (98-107); CREATININE 2.05 mg/dL (0.55-1.02)
[2018-05-25] MEDS: GABAPENTIN 300 MG CAPSULE PO SCH ×2 (09:04→20:41)
[2018-05-25] MEDS: FENOFIBRATE 145 MG TABLET PO SCH (09:04)
[2018-05-25] MEDS: SENNA/DOCUSATE TABLET PO SCH (09:04)
[2018-05-25] MEDS: INSULIN GLARGINE 100 UNITS/ML, PEN SQ-INSULIN SCH (09:05)
[2018-05-25] MEDS: CEFTRIAXONE PMX 2GM/50ML 50 ML IV SCH (12:23)
[2018-05-25 12:27] VITALS: BP 127/72
[2018-05-25] MEDS: METHOCARBAMOL 500 MG TABLET PO PRN (16:50)
[2018-05-25] MEDS: CYCLOBENZAPRINE 10 MG TABLET PO PRN (20:39)
[2018-05-25] MEDS: FLUOXETINE HCL 20 MG CAPSULE PO SCH (20:40)
[2018-05-25] MEDS: SIMVASTATIN 20 MG TABLET PO SCH (20:40)
[2018-05-25 20:53] VITALS: BP 113/54
[2018-05-26] MEDS: METHOCARBAMOL 500 MG TABLET PO PRN (01:16)
[2018-05-26 01:33] VITALS: BP 104/55
[2018-05-26] MEDS: CYCLOBENZAPRINE 10 MG TABLET PO PRN ×3 (03:51→22:52)
[2018-05-26] MEDS: HEPARIN 5,000 UNITS/ML, 1ML SQ SCH ×3 (05:06→20:38)
[2018-05-26 05:52] LABS: ANION GAP 5 mmol/L (5-15); CALCIUM 9.3 mg/dL (8.5-10.1); CHLORIDE 103 mmol/L (98-107); CREATININE 1.65 mg/dL (0.55-1.02)
[2018-05-26 06:12] LABS: BASOPHILS % (AUTO) 2 % (0-1); EOSINOPHILS # (AUTO) 0.44 x10^3/uL (0-0.4); EOSINOPHILS % (AUTO) 5 % (1-7); LYMPHOCYTES # (AUTO) 1.79 x10^3/uL (1-3.4); LYMPHOCYTES % (AUTO) 18 % (22-44); MD NO; MEAN CORPUSCULAR HEMOGLOBIN 30.2 pg (27.0-34.8); MEAN CORPUSCULAR HGB CONC 33.8 g/dL (32.4-35.8); MEAN CORPUSCULAR VOLUME 89.3 fL (80-100); MEAN PLATELET VOLUME 8.5 fL (7.4-10.4); MONOCYTES # (AUTO) 0.89 x10^3/uL (0.2-0.8); MONOCYTES % (AUTO) 9 % (2-9); NEUTROPHILS # (AUTO) 6.51 x10^3/uL (1.8-6.8); NEUTROPHILS % (AUTO) 66 % (42-75); PLATELET COUNT 315 x10^3/uL (130-400); RED BLOOD COUNT 2.96 x10^6/uL (3.82-5.3); RED CELL DISTRIBUTION WIDTH 15.7 % (9.6-15.2)
[2018-05-26 07:44] VITALS: BP 139/74
[2018-05-26] MEDS: INSULIN LISPRO 100 UNITS/ML, PEN SQ-INSULIN SCH ×8 (07:45→20:55)
[2018-05-26] MEDS: GABAPENTIN 300 MG CAPSULE PO SCH ×2 (08:44→20:38)
[2018-05-26] MEDS: SENNA/DOCUSATE TABLET PO SCH (08:45)
[2018-05-26] MEDS: OXYcodone/APAP 5/325MG TABLET PO PRN ×2 (08:45→16:59)
[2018-05-26] MEDS: FENOFIBRATE 145 MG TABLET PO SCH (08:45)
[2018-05-26] MEDS: INSULIN GLARGINE 100 UNITS/ML, PEN SQ-INSULIN SCH (08:46)
[2018-05-26 14:00] VITALS: BP 143/77
[2018-05-26] MEDS: CEFTRIAXONE PMX 2GM/50ML 50 ML IV SCH (14:11)
[2018-05-26] MEDS: SODIUM CHLORIDE 0.9% 1,000 ML IV SCH ×2 (14:11→23:28)
[2018-05-26] MEDS: FLUOXETINE HCL 20 MG CAPSULE PO SCH (20:37)
[2018-05-26] MEDS: SIMVASTATIN 20 MG TABLET PO SCH (20:38)
[2018-05-26 21:17] VITALS: BP_SYST 112; BP_SYST 123; BP_DIAS 68; BP_DIAS 70
[2018-05-27] MEDS: OXYcodone/APAP 5/325MG TABLET PO PRN ×3 (01:47→18:16)
[2018-05-27] MEDS: METHOCARBAMOL 500 MG TABLET PO PRN ×3 (01:47→18:16)
[2018-05-27 02:21] VITALS: BP 119/71
[2018-05-27] MEDS: HEPARIN 5,000 UNITS/ML, 1ML SQ SCH ×3 (04:04→20:32)
[2018-05-27 08:10] LABS: ANION GAP 8 mmol/L (5-15); CALCIUM 9.2 mg/dL (8.5-10.1); CHLORIDE 103 mmol/L (98-107); CREATININE 1.38 mg/dL (0.55-1.02)
[2018-05-27] MEDS: INSULIN LISPRO 100 UNITS/ML, PEN SQ-INSULIN SCH ×8 (08:11→21:02)
[2018-05-27] MEDS: INSULIN GLARGINE 100 UNITS/ML, PEN SQ-INSULIN SCH (08:12)
[2018-05-27] MEDS: SENNA/DOCUSATE TABLET PO SCH (08:13)
[2018-05-27] MEDS: FENOFIBRATE 145 MG TABLET PO SCH (08:13)
[2018-05-27] MEDS: CYCLOBENZAPRINE 10 MG TABLET PO PRN ×3 (08:13→23:17)
[2018-05-27] MEDS: GABAPENTIN 300 MG CAPSULE PO SCH ×2 (08:13→20:32)
[2018-05-27 08:39] VITALS: BP 155/75
[2018-05-27] MEDS: SODIUM CHLORIDE 0.9% 1,000 ML IV SCH (09:40)
[2018-05-27] MEDS ORDERED: GADOBUTROL 15 MMOL/15 ML VIAL ONE (11:34)
[2018-05-27 13:02] VITALS: BP 117/68
[2018-05-27] MEDS: CEFTRIAXONE PMX 2GM/50ML 50 ML IV SCH (13:11)
[2018-05-27] MEDS: FLUOXETINE HCL 20 MG CAPSULE PO SCH (20:32)
[2018-05-27] MEDS: SIMVASTATIN 20 MG TABLET PO SCH (20:32)
[2018-05-27 21:47] VITALS: BP 115/71
[2018-05-28 02:05] VITALS: BP 131/75
[2018-05-28] MEDS: OXYcodone/APAP 5/325MG TABLET PO PRN ×3 (02:07→22:07)
[2018-05-28] MEDS: METHOCARBAMOL 500 MG TABLET PO PRN ×3 (02:07→22:09)
[2018-05-28] MEDS: HEPARIN 5,000 UNITS/ML, 1ML SQ SCH ×3 (04:00→21:43)
[2018-05-28] MEDS: CYCLOBENZAPRINE 10 MG TABLET PO PRN (05:14)
[2018-05-28] MEDS ORDERED: CATHFLO-ALTEPLASE 2 MG/2 ML CATHFLUSH ONE (05:30)
[2018-05-28 05:38] LABS: BASOPHILS # (AUTO) 0.21 x10^3/uL (0-0.1); BASOPHILS % (AUTO) 2 % (0-1); EOSINOPHILS % (AUTO) 4 % (1-7); LYMPHOCYTES # (AUTO) 1.84 x10^3/uL (1-3.4); LYMPHOCYTES % (AUTO) 19 % (22-44); MD NO; MEAN CORPUSCULAR HEMOGLOBIN 30.5 pg (27.0-34.8); MEAN CORPUSCULAR HGB CONC 33.6 g/dL (32.4-35.8); MEAN CORPUSCULAR VOLUME 90.7 fL (80-100); MEAN PLATELET VOLUME 7.5 fL (7.4-10.4); MONOCYTES # (AUTO) 1.02 x10^3/uL (0.2-0.8); MONOCYTES % (AUTO) 11 % (2-9); NEUTROPHILS # (AUTO) 6.15 x10^3/uL (1.8-6.8); NEUTROPHILS % (AUTO) 64 % (42-75); PLATELET COUNT 337 x10^3/uL (130-400); RED BLOOD COUNT 3.18 x10^6/uL (3.82-5.3); RED CELL DISTRIBUTION WIDTH 15.8 % (9.6-15.2)
[2018-05-28 05:54] LABS: ANION GAP 7 mmol/L (5-15); CALCIUM 9.2 mg/dL (8.5-10.1); CHLORIDE 104 mmol/L (98-107)
[2018-05-28 05:55] LABS: CREATININE 1.44 mg/dL (0.55-1.02)
[2018-05-28] MEDS ORDERED: INSULIN LISPRO 100 UNITS/ML, PEN SQ-INSULIN SCH (07:00)
[2018-05-28] MEDS: INSULIN LISPRO 100 UNITS/ML, PEN SQ-INSULIN SCH ×7 (07:52→21:44)
[2018-05-28 08:13] VITALS: BP 113/69
[2018-05-28] MEDS: GABAPENTIN 300 MG CAPSULE PO SCH ×3 (09:00→21:44)
[2018-05-28] MEDS: INSULIN GLARGINE 100 UNITS/ML, PEN SQ-INSULIN SCH (09:35)
[2018-05-28] MEDS ORDERED: INSULIN GLARGINE 100 UNITS/ML, PEN SQ-INSULIN ONE (10:00)
[2018-05-28] MEDS: FENOFIBRATE 145 MG TABLET PO SCH (10:11)
[2018-05-28] MEDS: SENNA/DOCUSATE TABLET PO SCH (10:12)
[2018-05-28] MEDS ORDERED: LIDOCAINE-MPF 1%, 5ML ONE (11:38)
[2018-05-28] MEDS ORDERED: FLUMAZENIL 0.1 MG/1 ML, 5ML ONE (11:42)
[2018-05-28] MEDS ORDERED: MIDAZOLAM 1 MG/ML, 5ML ONE (11:42)
[2018-05-28] MEDS ORDERED: FENTANYL PF 100 MCG/2ML ONE (11:42)
[2018-05-28] MEDS ORDERED: NALOXONE 1 MG/ML, 2ML ONE (11:42)
[2018-05-28] MEDS: CEFTRIAXONE PMX 2GM/50ML 50 ML IV SCH (13:05)
[2018-05-28 14:53] VITALS: BP 126/73
[2018-05-28 19:27] VITALS: BP 142/68
[2018-05-28] MEDS: SIMVASTATIN 20 MG TABLET PO SCH (21:44)
[2018-05-28] MEDS: FLUOXETINE HCL 20 MG CAPSULE PO SCH (21:44)
[2018-05-29 01:29] VITALS: BP 121/69
[2018-05-29] MEDS: CYCLOBENZAPRINE 10 MG TABLET PO PRN ×2 (02:55→21:02)
[2018-05-29] MEDS: HEPARIN 5,000 UNITS/ML, 1ML SQ SCH ×3 (03:59→21:02)
[2018-05-29 04:46] LABS: BASOPHILS # (AUTO) 0.21 x10^3/uL (0-0.1); BASOPHILS % (AUTO) 2 % (0-1); EOSINOPHILS % (AUTO) 3 % (1-7); LYMPHOCYTES # (AUTO) 1.58 x10^3/uL (1-3.4); LYMPHOCYTES % (AUTO) 18 % (22-44); MD NO; MEAN CORPUSCULAR HEMOGLOBIN 30.3 pg (27.0-34.8); MEAN CORPUSCULAR HGB CONC 33.4 g/dL (32.4-35.8); MEAN CORPUSCULAR VOLUME 90.6 fL (80-100); MEAN PLATELET VOLUME 7.7 fL (7.4-10.4); MONOCYTES # (AUTO) 0.83 x10^3/uL (0.2-0.8); MONOCYTES % (AUTO) 9 % (2-9); NEUTROPHILS # (AUTO) 6.06 x10^3/uL (1.8-6.8); NEUTROPHILS % (AUTO) 68 % (42-75); PLATELET COUNT 338 x10^3/uL (130-400); RED BLOOD COUNT 3.24 x10^6/uL (3.82-5.3); RED CELL DISTRIBUTION WIDTH 15.6 % (9.6-15.2)
[2018-05-29 04:52] LABS: CHLORIDE 104 mmol/L (98-107)
[2018-05-29 05:04] LABS: ALANINE AMINOTRANSFERASE 32 U/L (12-78); ALBUMIN 2.8 g/dL (3.4-5.0); ALKALINE PHOSPHATASE 94 U/L (45-117); ANION GAP 7 mmol/L (5-15); BILIRUBIN,TOTAL 0.3 mg/dL (0.2-1.0); CALCIUM 9.3 mg/dL (8.5-10.1); CREATININE 1.39 mg/dL (0.55-1.02); TOTAL PROTEIN 6.6 g/dL (6.4-8.2)
[2018-05-29] MEDS: INSULIN LISPRO 100 UNITS/ML, PEN SQ-INSULIN SCH ×7 (07:00→21:18)
[2018-05-29 07:50] VITALS: BP 134/80
[2018-05-29] MEDS: FENOFIBRATE 145 MG TABLET PO SCH (08:03)
[2018-05-29] MEDS: METHOCARBAMOL 500 MG TABLET PO PRN ×2 (08:04→16:12)
[2018-05-29] MEDS: GABAPENTIN 300 MG CAPSULE PO SCH ×3 (08:04→21:02)
[2018-05-29] MEDS: SENNA/DOCUSATE TABLET PO SCH (08:04)
[2018-05-29] MEDS: OXYcodone/APAP 5/325MG TABLET PO PRN ×2 (09:35→17:30)
[2018-05-29] MEDS: INSULIN GLARGINE 100 UNITS/ML, PEN SQ-INSULIN SCH (09:38)
[2018-05-29] MEDS: CEFTRIAXONE PMX 2GM/50ML 50 ML IV SCH (11:32)
[2018-05-29 14:50] VITALS: BP 119/71
[2018-05-29 20:15] VITALS: BP 109/58
[2018-05-29] MEDS: FLUOXETINE HCL 20 MG CAPSULE PO SCH (21:02)
[2018-05-29] MEDS: SIMVASTATIN 20 MG TABLET PO SCH (21:02)
[2018-05-29] MEDS: MORPHINE SULFATE 4 MG/ML, 1ML IVPush PRN (21:54)
[2018-05-30] MEDS: METHOCARBAMOL 500 MG TABLET PO PRN ×3 (00:58→20:00)
[2018-05-30] MEDS: OXYcodone/APAP 5/325MG TABLET PO PRN ×3 (01:36→20:00)
[2018-05-30] MEDS: HEPARIN 5,000 UNITS/ML, 1ML SQ SCH ×3 (04:25→20:00)
[2018-05-30 05:08] LABS: BASOPHILS # (AUTO) 0.19 x10^3/uL (0-0.1); BASOPHILS % (AUTO) 2 % (0-1); EOSINOPHILS # (AUTO) 0.31 x10^3/uL (0-0.4); EOSINOPHILS % (AUTO) 4 % (1-7); LYMPHOCYTES # (AUTO) 1.61 x10^3/uL (1-3.4); LYMPHOCYTES % (AUTO) 20 % (22-44); MD NO; MEAN CORPUSCULAR HEMOGLOBIN 29.5 pg (27.0-34.8); MEAN CORPUSCULAR HGB CONC 32.5 g/dL (32.4-35.8); MEAN CORPUSCULAR VOLUME 90.7 fL (80-100); MEAN PLATELET VOLUME 7.8 fL (7.4-10.4); MONOCYTES % (AUTO) 10 % (2-9); NEUTROPHILS # (AUTO) 5.32 x10^3/uL (1.8-6.8); NEUTROPHILS % (AUTO) 65 % (42-75); PLATELET COUNT 324 x10^3/uL (130-400); RED BLOOD COUNT 3.15 x10^6/uL (3.82-5.3); RED CELL DISTRIBUTION WIDTH 15.7 % (9.6-15.2)
[2018-05-30 05:11] VITALS: BP 120/74
[2018-05-30 05:11] LABS: ALBUMIN 2.7 g/dL (3.4-5.0); CALCIUM 9.2 mg/dL (8.5-10.1); CHLORIDE 104 mmol/L (98-107)
[2018-05-30 05:17] LABS: ALANINE AMINOTRANSFERASE 30 U/L (12-78); ALKALINE PHOSPHATASE 89 U/L (45-117); ANION GAP 8 mmol/L (5-15); BILIRUBIN,TOTAL 0.3 mg/dL (0.2-1.0); CREATININE 1.45 mg/dL (0.55-1.02); TOTAL PROTEIN 6.6 g/dL (6.4-8.2)
[2018-05-30 06:40] VITALS: BP 127/69
[2018-05-30] MEDS: INSULIN LISPRO 100 UNITS/ML, PEN SQ-INSULIN SCH ×7 (07:00→20:11)
[2018-05-30] MEDS: SENNA/DOCUSATE TABLET PO SCH (08:31)
[2018-05-30] MEDS: FENOFIBRATE 145 MG TABLET PO SCH (08:31)
[2018-05-30] MEDS: GABAPENTIN 300 MG CAPSULE PO SCH ×3 (08:31→20:00)
[2018-05-30] MEDS: INSULIN GLARGINE 100 UNITS/ML, PEN SQ-INSULIN SCH (08:33)
[2018-05-30] MEDS: CEFTRIAXONE PMX 2GM/50ML 50 ML IV SCH (11:09)
[2018-05-30 15:23] VITALS: BP 109/69
[2018-05-30] MEDS: CYCLOBENZAPRINE 10 MG TABLET PO PRN (16:05)
[2018-05-30] MEDS: MORPHINE SULFATE 4 MG/ML, 1ML IVPush PRN (17:23)
[2018-05-30 19:33] VITALS: BP 118/74
[2018-05-30] MEDS: SIMVASTATIN 20 MG TABLET PO SCH (20:00)
[2018-05-30] MEDS: FLUOXETINE HCL 20 MG CAPSULE PO SCH (20:00)
[2018-05-31 01:58] VITALS: BP 106/62
[2018-05-31] MEDS: HEPARIN 5,000 UNITS/ML, 1ML SQ SCH ×3 (04:56→20:19)
[2018-05-31] MEDS: CYCLOBENZAPRINE 10 MG TABLET PO PRN ×2 (04:56→20:19)
[2018-05-31] MEDS: OXYcodone/APAP 5/325MG TABLET PO PRN ×2 (06:11→15:26)
[2018-05-31] MEDS: INSULIN LISPRO 100 UNITS/ML, PEN SQ-INSULIN SCH ×7 (07:00→20:29)
[2018-05-31 08:14] VITALS: BP 146/84
[2018-05-31] MEDS: SENNA/DOCUSATE TABLET PO SCH (08:49)
[2018-05-31] MEDS: FENOFIBRATE 145 MG TABLET PO SCH (08:49)
[2018-05-31] MEDS: GABAPENTIN 300 MG CAPSULE PO SCH ×3 (08:49→20:19)
[2018-05-31] MEDS: INSULIN GLARGINE 100 UNITS/ML, PEN SQ-INSULIN SCH (08:50)
[2018-05-31] MEDS: CEFTRIAXONE PMX 2GM/50ML 50 ML IV SCH (12:34)
[2018-05-31 14:20] VITALS: BP 157/84
[2018-05-31] MEDS: MORPHINE SULFATE 4 MG/ML, 1ML IVPush PRN (14:24)
[2018-05-31] MEDS: METHOCARBAMOL 500 MG TABLET PO PRN ×2 (14:24→22:26)
[2018-05-31 19:45] VITALS: BP 112/59
[2018-05-31] MEDS: FLUOXETINE HCL 20 MG CAPSULE PO SCH (20:19)
[2018-05-31] MEDS: SIMVASTATIN 20 MG TABLET PO SCH (20:19)
[2018-06-01] MEDS: OXYcodone/APAP 5/325MG TABLET PO PRN ×2 (00:10→20:41)
[2018-06-01 02:17] VITALS: BP 145/68
[2018-06-01] MEDS: CYCLOBENZAPRINE 10 MG TABLET PO PRN (03:05)
[2018-06-01 03:29] LABS: BASOPHILS # (AUTO) 0.18 x10^3/uL (0-0.1); BASOPHILS % (AUTO) 2 % (0-1); EOSINOPHILS # (AUTO) 0.33 x10^3/uL (0-0.4); EOSINOPHILS % (AUTO) 4 % (1-7); LYMPHOCYTES % (AUTO) 17 % (22-44); MD NO; MEAN CORPUSCULAR HEMOGLOBIN 30.6 pg (27.0-34.8); MEAN CORPUSCULAR HGB CONC 33.6 g/dL (32.4-35.8); MEAN CORPUSCULAR VOLUME 91.1 fL (80-100); MEAN PLATELET VOLUME 7.8 fL (7.4-10.4); MONOCYTES # (AUTO) 0.82 x10^3/uL (0.2-0.8); MONOCYTES % (AUTO) 9 % (2-9); NEUTROPHILS # (AUTO) 6.03 x10^3/uL (1.8-6.8); NEUTROPHILS % (AUTO) 68 % (42-75); PLATELET COUNT 297 x10^3/uL (130-400); RED BLOOD COUNT 2.97 x10^6/uL (3.82-5.3); RED CELL DISTRIBUTION WIDTH 15.4 % (9.6-15.2)
[2018-06-01 03:43] LABS: ALANINE AMINOTRANSFERASE 32 U/L (12-78); ALBUMIN 2.7 g/dL (3.4-5.0); ANION GAP 8 mmol/L (5-15); CALCIUM 8.9 mg/dL (8.5-10.1); CHLORIDE 102 mmol/L (98-107); CREATININE 1.69 mg/dL (0.55-1.02)
[2018-06-01 03:45] LABS: ALKALINE PHOSPHATASE 90 U/L (45-117); BILIRUBIN,TOTAL 0.3 mg/dL (0.2-1.0); TOTAL PROTEIN 6.4 g/dL (6.4-8.2)
[2018-06-01] MEDS: HEPARIN 5,000 UNITS/ML, 1ML SQ SCH ×3 (04:48→20:41)
[2018-06-01 08:00] VITALS: BP 155/79
[2018-06-01] MEDS: INSULIN LISPRO 100 UNITS/ML, PEN SQ-INSULIN SCH ×7 (08:17→20:49)
[2018-06-01] MEDS: FENOFIBRATE 145 MG TABLET PO SCH (08:18)
[2018-06-01] MEDS: GABAPENTIN 300 MG CAPSULE PO SCH ×3 (08:18→20:40)
[2018-06-01] MEDS: SENNA/DOCUSATE TABLET PO SCH (08:18)
[2018-06-01] MEDS: INSULIN GLARGINE 100 UNITS/ML, PEN SQ-INSULIN SCH (08:19)
[2018-06-01] MEDS: METHOCARBAMOL 500 MG TABLET PO PRN ×2 (10:26→20:40)
[2018-06-01] MEDS: CEFTRIAXONE PMX 2GM/50ML 50 ML IV SCH (12:53)
[2018-06-01 14:00] VITALS: BP 151/67
[2018-06-01 18:55] VITALS: BP 126/70
[2018-06-01] MEDS: FLUOXETINE HCL 20 MG CAPSULE PO SCH (20:41)
[2018-06-01] MEDS: SIMVASTATIN 20 MG TABLET PO SCH (20:41)
[2018-06-02 00:48] VITALS: BP 138/73
[2018-06-02] MEDS: CYCLOBENZAPRINE 10 MG TABLET PO PRN ×2 (02:14→21:30)
[2018-06-02] MEDS: HEPARIN 5,000 UNITS/ML, 1ML SQ SCH ×3 (05:20→21:29)
[2018-06-02] MEDS: INSULIN LISPRO 100 UNITS/ML, PEN SQ-INSULIN SCH ×7 (07:00→21:30)
[2018-06-02 07:33] VITALS: BP 147/79
[2018-06-02] MEDS: GABAPENTIN 300 MG CAPSULE PO SCH ×3 (08:53→21:30)
[2018-06-02] MEDS: SENNA/DOCUSATE TABLET PO SCH (08:53)
[2018-06-02] MEDS: FENOFIBRATE 145 MG TABLET PO SCH (08:53)
[2018-06-02] MEDS: INSULIN GLARGINE 100 UNITS/ML, PEN SQ-INSULIN SCH (08:53)
[2018-06-02] MEDS: OXYcodone/APAP 5/325MG TABLET PO PRN ×2 (08:59→21:30)
[2018-06-02] MEDS: CEFTRIAXONE PMX 2GM/50ML 50 ML IV SCH (11:57)
[2018-06-02 13:15] VITALS: BP 144/74
[2018-06-02] MEDS: METHOCARBAMOL 500 MG TABLET PO PRN (14:49)
[2018-06-02 21:19] VITALS: BP 146/74
[2018-06-02] MEDS: FLUOXETINE HCL 20 MG CAPSULE PO SCH (21:30)
[2018-06-02] MEDS: SIMVASTATIN 20 MG TABLET PO SCH (21:31)
[2018-06-03 02:10] VITALS: BP 108/70
[2018-06-03] MEDS: METHOCARBAMOL 500 MG TABLET PO PRN ×2 (03:19→22:36)
[2018-06-03] MEDS: CYCLOBENZAPRINE 10 MG TABLET PO PRN (04:46)
[2018-06-03] MEDS: HEPARIN 5,000 UNITS/ML, 1ML SQ SCH ×3 (05:00→21:01)
[2018-06-03] MEDS: INSULIN LISPRO 100 UNITS/ML, PEN SQ-INSULIN SCH ×7 (07:00→21:01)
[2018-06-03 08:00] VITALS: BP 116/75
[2018-06-03] MEDS: SENNA/DOCUSATE TABLET PO SCH (09:00)
[2018-06-03] MEDS: OXYcodone/APAP 5/325MG TABLET PO PRN ×2 (09:00→17:50)
[2018-06-03] MEDS: INSULIN GLARGINE 100 UNITS/ML, PEN SQ-INSULIN SCH (09:01)
[2018-06-03] MEDS: GABAPENTIN 300 MG CAPSULE PO SCH ×3 (09:01→21:01)
[2018-06-03] MEDS: FENOFIBRATE 145 MG TABLET PO SCH (09:02)
[2018-06-03] MEDS: CEFTRIAXONE PMX 2GM/50ML 50 ML IV SCH (12:43)
[2018-06-03 12:57] VITALS: BP 121/75
[2018-06-03 19:03] VITALS: BP 139/57
[2018-06-03] MEDS: FLUOXETINE HCL 20 MG CAPSULE PO SCH (21:01)
[2018-06-03] MEDS: SIMVASTATIN 20 MG TABLET PO SCH (21:01)
[2018-06-04] MEDS: CYCLOBENZAPRINE 10 MG TABLET PO PRN ×3 (01:14→19:11)
[2018-06-04] MEDS: OXYcodone/APAP 5/325MG TABLET PO PRN ×3 (02:39→19:11)
[2018-06-04 03:54] VITALS: BP 127/74
[2018-06-04] MEDS: HEPARIN 5,000 UNITS/ML, 1ML SQ SCH ×3 (05:15→22:05)
[2018-06-04 05:43] LABS: BASOPHILS # (AUTO) 0.13 x10^3/uL (0-0.1); BASOPHILS % (AUTO) 2 % (0-1); EOSINOPHILS % (AUTO) 5 % (1-7); LYMPHOCYTES # (AUTO) 1.66 x10^3/uL (1-3.4); LYMPHOCYTES % (AUTO) 22 % (22-44); MD NO; MEAN CORPUSCULAR HEMOGLOBIN 30.8 pg (27.0-34.8); MEAN CORPUSCULAR HGB CONC 33.9 g/dL (32.4-35.8); MEAN PLATELET VOLUME 7.8 fL (7.4-10.4); MONOCYTES # (AUTO) 0.85 x10^3/uL (0.2-0.8); MONOCYTES % (AUTO) 11 % (2-9); NEUTROPHILS # (AUTO) 4.55 x10^3/uL (1.8-6.8); NEUTROPHILS % (AUTO) 60 % (42-75); PLATELET COUNT 275 x10^3/uL (130-400); RED BLOOD COUNT 3.14 x10^6/uL (3.82-5.3)
[2018-06-04 06:00] LABS: CHLORIDE 102 mmol/L (98-107)
[2018-06-04 06:33] LABS: ANION GAP 8 mmol/L (5-15); CALCIUM 9.4 mg/dL (8.5-10.1)
[2018-06-04] MEDS: INSULIN LISPRO 100 UNITS/ML, PEN SQ-INSULIN SCH ×7 (07:00→22:07)
[2018-06-04] MEDS: METHOCARBAMOL 500 MG TABLET PO PRN (07:15)
[2018-06-04 08:18] VITALS: BP 131/81
[2018-06-04] MEDS: SENNA/DOCUSATE TABLET PO SCH (09:21)
[2018-06-04] MEDS: GABAPENTIN 300 MG CAPSULE PO SCH ×3 (09:21→22:05)
[2018-06-04] MEDS: FENOFIBRATE 145 MG TABLET PO SCH (09:21)
[2018-06-04] MEDS: INSULIN GLARGINE 100 UNITS/ML, PEN SQ-INSULIN SCH (09:22)
[2018-06-04] MEDS: CEFTRIAXONE PMX 2GM/50ML 50 ML IV SCH (12:02)
[2018-06-04 13:58] VITALS: BP 122/69
[2018-06-04 20:48] VITALS: BP 133/74
[2018-06-04] MEDS: SIMVASTATIN 20 MG TABLET PO SCH (22:05)
[2018-06-04] MEDS: FLUOXETINE HCL 20 MG CAPSULE PO SCH (22:05)
[2018-06-05] MEDS: OXYcodone/APAP 5/325MG TABLET PO PRN ×3 (03:16→16:23)
[2018-06-05] MEDS: METHOCARBAMOL 500 MG TABLET PO PRN ×3 (03:21→16:23)
[2018-06-05 03:50] VITALS: BP 127/74
[2018-06-05 03:50] LABS: BASOPHILS # (AUTO) 0.15 x10^3/uL (0-0.1); BASOPHILS % (AUTO) 2 % (0-1); EOSINOPHILS # (AUTO) 0.28 x10^3/uL (0-0.4); EOSINOPHILS % (AUTO) 4 % (1-7); LYMPHOCYTES # (AUTO) 1.38 x10^3/uL (1-3.4); LYMPHOCYTES % (AUTO) 20 % (22-44); MD NO; MEAN CORPUSCULAR HEMOGLOBIN 30.9 pg (27.0-34.8); MEAN CORPUSCULAR HGB CONC 33.6 g/dL (32.4-35.8); MEAN PLATELET VOLUME 7.9 fL (7.4-10.4); MONOCYTES # (AUTO) 0.92 x10^3/uL (0.2-0.8); MONOCYTES % (AUTO) 13 % (2-9); NEUTROPHILS # (AUTO) 4.12 x10^3/uL (1.8-6.8); NEUTROPHILS % (AUTO) 60 % (42-75); PLATELET COUNT 271 x10^3/uL (130-400); RED BLOOD COUNT 3.04 x10^6/uL (3.82-5.3); RED CELL DISTRIBUTION WIDTH 15.3 % (9.6-15.2)
[2018-06-05 03:51] LABS: HCT (SEDRATE) 27.7 % (34.6-47.8)
[2018-06-05 04:02] LABS: ANION GAP 6 mmol/L (5-15); CALCIUM 9.1 mg/dL (8.5-10.1); CHLORIDE 103 mmol/L (98-107); CREATININE 1.34 mg/dL (0.55-1.02)
[2018-06-05] MEDS: HEPARIN 5,000 UNITS/ML, 1ML SQ SCH ×2 (05:15→12:30)
[2018-06-05] MEDS: INSULIN LISPRO 100 UNITS/ML, PEN SQ-INSULIN SCH ×6 (07:00→16:23)
[2018-06-05 07:23] VITALS: BP 134/78
[2018-06-05] MEDS: FENOFIBRATE 145 MG TABLET PO SCH (08:26)
[2018-06-05] MEDS: SENNA/DOCUSATE TABLET PO SCH (08:26)
[2018-06-05] MEDS: INSULIN GLARGINE 100 UNITS/ML, PEN SQ-INSULIN SCH (08:26)
[2018-06-05] MEDS: GABAPENTIN 300 MG CAPSULE PO SCH ×2 (08:26→16:23)
[2018-06-05] MEDS: CEFTRIAXONE PMX 2GM/50ML 50 ML IV SCH (12:30)
[2018-06-05] MEDS: CYCLOBENZAPRINE 10 MG TABLET PO PRN (12:30)
[2018-06-05] MEDS ORDERED: GABA300C10 PO (13:05)
[2018-06-05] MEDS ORDERED: INSU100I13 SQ-INSULIN (13:05)
[2018-06-05] MEDS ORDERED: CEFT2PIG2 IV (13:05)
[2018-06-05] MEDS ORDERED: SENN1TAB8 PO (13:05)
[2018-06-05] MEDS ORDERED: OXYC1TAB7 PO (13:05)
[2018-06-05] MEDS ORDERED: METH500T7 PO (13:05)
[2018-06-05] MEDS ORDERED: POLY17PO5 PO (13:05)
[2018-06-05] MEDS ORDERED: INSU100I11 SQ-INSULIN ×2 (13:05)
[2018-06-05] MEDS ORDERED: MORP4VIA IVPush (13:05)
[2018-06-05] MEDS ORDERED: ONDA4VIA8 IVPush (13:05)
[2018-06-05] MEDS ORDERED: HEPA50002 SQ (13:05)
[2018-06-05] MEDS ORDERED: BISA10SU65 PR (13:05)
== END 2018-06-05 18:17 | DRG 94 ==
LOC: ED 20:25 → EDIP 20:51 → 3NE 23:02 → 4WST 05-16 10:58 → 3NE 05-16 10:58
PROVIDERS: ADMIT Internal Medicine; ATTEND Internal Medicine
PROC: 0S923ZX Drainage of Lumbar Vertebral Disc, Percutaneous Approach, Diagnostic (ICD-10-PCS; principal; 2018-05-12)
PROC: 02HV33Z Insertion of Infusion Device into Superior Vena Cava, Percutaneous Approach (ICD-10-PCS; 2018-05-16)
PROC: B548ZZA Ultrasonography of Superior Vena Cava, Guidance (ICD-10-PCS; 2018-05-16)
PROC: B5181ZA Fluoroscopy of Superior Vena Cava using Low Osmolar Contrast, Guidance (ICD-10-PCS; 2018-05-16)
PROC: 0S923ZX Drainage of Lumbar Vertebral Disc, Percutaneous Approach, Diagnostic (ICD-10-PCS; 2018-05-27)
DX: G06.1 Intraspinal abscess and granuloma (principal); R53.2 Functional quadriplegia; N17.0 Acute kidney failure with tubular necrosis; M46.26 Osteomyelitis of vertebra, lumbar region; E44.0 Moderate protein-calorie malnutrition; N39.0 Urinary tract infection, site not specified; N18.4 Chronic kidney disease, stage 4 (severe); E87.1 Hypo-osmolality and hyponatremia; Z68.44 Body mass index [BMI] 60.0-69.9, adult; M46.46 Discitis, unspecified, lumbar region; E66.01 Morbid (severe) obesity due to excess calories; D64.9 Anemia, unspecified; K76.0 Fatty (change of) liver, not elsewhere classified; L08.9 Local infection of the skin and subcutaneous tissue, unspecified; E78.5 Hyperlipidemia, unspecified; E11.40 Type 2 diabetes mellitus with diabetic neuropathy, unspecified; E11.22 Type 2 diabetes mellitus with diabetic chronic kidney disease; E11.65 Type 2 diabetes mellitus with hyperglycemia; E11.69 Type 2 diabetes mellitus with other specified complication; E78.00 Pure hypercholesterolemia, unspecified; Z79.4 Long term (current) use of insulin; Z60.2 Problems related to living alone; I12.9 Hypertensive chronic kidney disease with stage 1 through stage 4 chronic kidney disease, or unspecified chronic kidney disease; Z96.653 Presence of artificial knee joint, bilateral; J44.9 Chronic obstructive pulmonary disease, unspecified; K59.00 Constipation, unspecified; K70.9 Alcoholic liver disease, unspecified; K75.81 Nonalcoholic steatohepatitis (NASH); M16.0 Bilateral primary osteoarthritis of hip; M54.31 Sciatica, right side; W18.39XA Other fall on same level, initial encounter; Y92.230 Patient room in hospital as the place of occurrence of the external cause; Y93.89 Activity, other specified; Y99.8 Other external cause status; Z74.01 Bed confinement status; Z82.49 Family history of ischemic heart disease and other diseases of the circulatory system; Z98.891 History of uterine scar from previous surgery; Z90.49 Acquired absence of other specified parts of digestive tract
CPT/HCPCS: 36415; 36569; 62267; 71045; 72100; 72148; 72158; 73523; 75989; 76700; 76770; 76937; 77001; 77002; 80048; 80053; 80061; 80202; 81001; 82962; 83036; 83605; 83735; 84100; 84439; 84443; 85025; 85651; 86140; 86704; 86705; 86706; 86708; 86709; 86803; 87015; 87040; 87070; 87075; 87077; 87086; 87116; 87186; 87205; 87206; 87340; 96374; 96375; 99156; 99157; A9585; G0378; J0696; J1644; J2185; J2250; J2405; J2997; J3010; C1751; J1815; J2270; J2310; J7030; J7040